=== PATIENT | male | born 1980 | race Caucasian/White ===

== ENCOUNTER 2016-07-11 09:49 | Outpatient (CLI) | payer OTHER | END 2016-07-11 09:50 | disposition home or self-care (01) | LOC: SC 09:49 | PROVIDERS: ATTEND Nurse Practitioner Family | DX: G47.33 Obstructive sleep apnea (adult) (pediatric) (principal) | CPT/HCPCS: 99212; 99214 ==

== ENCOUNTER 2016-11-07 09:52 | Outpatient (CLI) | payer OTHER | END 2016-11-07 09:53 | disposition home or self-care (01) | LOC: SC 09:52 | PROVIDERS: ATTEND Nurse Practitioner Family | DX: G47.33 Obstructive sleep apnea (adult) (pediatric) (principal) | CPT/HCPCS: 99212; 99214 ==

== ENCOUNTER 2016-12-04 09:51 | Outpatient (CLI) | payer OTHER | END 2016-12-04 09:52 | disposition home or self-care (01) | LOC: SC 09:51 | PROVIDERS: ATTEND Nurse Practitioner Family | DX: G47.33 Obstructive sleep apnea (adult) (pediatric) (principal) | CPT/HCPCS: 99212; 99214 ==

== ENCOUNTER 2021-05-26 13:59 | Outpatient (CLI) | payer OTHER ==
[2021-05-26 15:00] VITALS: BP 90/71
--- NOTE | 2021-05-26 15:00 | SLEEP CARE CONSULTATION ---
Information from patient questionnaire entered by Myrtle Ruiz MA. I have reviewed and concur with the information entered by Myrtle Ruiz MA. This document represents the service I personally performed and the decisions made by , Shira Stephens ARNP. History of Present Illness Service Date and Time: 05/26/2021 1359 Reason for Visit: New patient (ON CPAP, LAST SEEN 2016, ), Previously diagnosed sleep apnea, sleep apnea on CPAP therapy Chief Complaint: reports: Unrefreshed sleep, Snoring, Excessive daytime sleepiness, Observed pauses in breathing, Fatigue, Frequent awakenings at night Date of Onset: 10 YEARS Usual bedtime: 10:30 PM Time it takes to fall asleep: 5 TO 10 MINUTES Snores at night: Yes Observed to quit breathing while asleep: Yes Sleeps alone due to snoring: No Number of times waking at night: 3 -4 TIMES Reasons for waking at night: reports: Snoring, Gasping for air, Pain, Bathroom, Other (HANDS FALL ASLEEP) Toss, Turn, or Twitch while sleeping: Yes Recalls having dreams: No Usually gets out of bed at: 0530 Feels refreshed in the morning: No Sleepy or fatigued during the day: Yes Ever fallen asleep while driving: No Takes day naps: Yes Dreams during day naps: No Prior sleep studies: Yes Year and Where: FEBRUARY 26, 2015, [facility] Additional HPI information: BRITT KEYS was previously diagnosed to have mild, AHI 7.5, obstructive sleep apnea-hypopnea syndrome and returns today to re-establish care for CPAP therapy. - Parasomnia Symptoms Ever been unable to move upon waking from sleep: No Walks in sleep: No Talks in sleep: Yes Ever acted out dreams in sleep: Yes Ever felt weak in the knees when startled or emotional: No Bothered by creepy, crawly, restless sensations in legs: No Problems with memory or concentration: No CPAP Compliance Data Compliance data discussion: He used to use [facility] for supplies but he has not been dealing with anyone to get supplies. He has a [employer]star that is on the recall. He stopped using his device in January due to the recall. He is now having more fatigue and is sleeping worse. He uses a nasal cushion by [employer]. We were unable to get any therapy download from his machine. He has not been able to see updated information on his phone application that goes with his machine for a long time. Subjective Missed days of use due to: reports: other (stopped since Jan due to recall) Patient concerns: denies: aerophagia, mask discomfort, air blowing in eyes, mask leak noise, condensation in mask/hose, nasal congestion, dry mouth, nose, throat, epistaxis, other Current pressure setting perceived as: comfortable On therapy, patient: reports: sleeping better, awakening more refreshed, being more awake and alert during the day, more rested overall. 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 Patient is and lives in [place]. Have you smoked in the past 12 months: No Alcohol use: Yes Alcohol amount and frequency: 1 X YEARLY Caffeine use: Yes Caffeine amount and frequency: 1 X DAILY Family History Family history of sleep disordered breathing: Yes Family Hx Sleep Apnea: Mother: Snoring, Father: Snoring, Sleep apnea - Untreated Allergies and Home Medications Drug allergies reviewed: Yes (NKDA) Home medication list reviewed: Yes Allergy and home medication list: Ibuprofen as needed Review of Systems Cardiovascular: denies: high blood pressure Gastrointestinal: reports: heartburn Neurological: denies: headaches Psychiatric: denies: anxiety, depression Ear/Nose/Throat: reports: nasal congestion, wisdom teeth removed. denies: tonsillectomy Endocrine: reports: sluggishness. denies: thyroid disease Musculoskeletal: reports: joint pain, neck pain, back pain Immunologic: reports: sneezing, rash, itching, allergies to food or environment, other (SCZEMA) Physical Exam Vital signs obtained and entered by: Ky RUIZ CMA AAMO Blood Pressure: 90/71 (RIGHT, PULSE 89) Cuff size: wrist Heart Rate: 59 O2 Saturation: 96 Height: 6 ft Weight: 234 lb (WITH CLOTHES) Body Mass Index: 31.7 BMI Classification: Obese Heart: regular rate and rhythm Lungs: clear bilaterally Impression and Plan 1. Obstructive Sleep Apnea-Hypopnea Syndrome, mild, with unknown treatment compliance and unknown apnea control. On CPAP therapy, the patient has better sleep quality and is more rested overall. We tried to obtain his therapy report but their was no information on the machine or memory chip. He has not been using it due to the recall since January but he would like to continue his CPAP therapy. Patient has already registered their device for the recall. Patient denies any black particles seen in machine or hoses, any unusual odors coming from device. Patient has not experienced any physical symptoms such as upper airway irritation, headache, skin or eye irritation, asthma, nausea/vomiting, difficulty breathing or chest pain. If patient is not able to sleep due to waking up choking, gasping for air or other respiratory distress that they may decide to continue using it until it is either replaced or repaired. Since the patients current machine is at least 5 years old and the patient is opting to update their device with a device that is not on the recall. Patient voiced understanding and agreement with plan. Patient's apnea severity and rationale for treatment to reduce apnea, improve sleep quality and reduce cardiovascular and cerebrovascular events was reviewed. Currently patients BMI is 31.7. Patient was encouraged to lose weight for their overall health and to reduce apneas. * Continue auto CPAP pressure at 10 cmH2O * Update machine * Update supplies * Notify me if snoring with mask or feeling that the pressure is too much or too little * Attempt to lose weight * Call this office if any problems using CPAP * Return for follow up one month after obtaining new machine, or sooner if concerns arise Counseling Topics: Weight loss health impact Visit Type: In Office Time Spent with Patient (minutes): 30 Provider Statement: I spent 100% of the Face to Face Visit with the patient with greater than 50% spent counseling the patient and coordination of care.
== END 2021-05-26 14:00 | disposition home or self-care (01) ==
LOC: SC 13:59
PROVIDERS: ATTEND Nurse Practitioner Family
DX: G47.33 Obstructive sleep apnea (adult) (pediatric) (principal); E66.9 Obesity, unspecified; Z68.31 Body mass index [BMI] 31.0-31.9, adult
CPT/HCPCS: 99203; 99212

== ENCOUNTER 2021-08-11 13:40 | Emergency (ER) | payer OTHER ==
[2021-08-11 13:47] VITALS: BP 164/81
--- NOTE | 2021-08-11 14:12 | ED Physician Documentation ---
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 Patient states that he is left-hand dominant. He denies any bony exposure that he Could see or any nailbed involvement. No other complaints at this time. His last tetanus shot was less than 5 years ago. Review of Systems Ten Systems: 10 systems reviewed and negative Constitutional: reports: Reviewed and negative Eyes: reports: Reviewed and negative Ears: reports: Reviewed and negative Nose: reports: Reviewed and negative Throat: reports: Reviewed and negative Cardiac: reports: Reviewed and negative Respiratory: reports: Reviewed and negative GI: reports: Reviewed and negative : reports: Reviewed and negative Skin: reports: Laceration (s) Musculoskeletal: reports: Reviewed and negative Neurologic: reports: Reviewed and negative Psychiatric: reports: Reviewed and negative Endocrine: reports: Reviewed and negative Immunocompromised: reports: Reviewed and negative PD PAST MEDICAL HISTORY - Past Medical History Past Medical History: Yes Cardiovascular: None Respiratory: Sleep apnea, CPAP use Neuro: None Endocrine/Autoimmune: None GI: None : None HEENT: None Psych: None Musculoskeletal: None Derm: None - Past Surgical History Past Surgical History: Yes - Present Medications Home Medications: Ambulatory Orders Medication Instructions Recorded Confirmed No Known Home Medications 08/11/21 08/11/21 - Allergies Allergies/Adverse Reactions: Allergies Allergy/AdvReac Type Severity Reaction Status Date / Time No Known Drug Allergies Allergy Verified 08/11/21 13:44 - Social History Does the pt smoke?: No Smoking Status: Never smoker Does the pt drink ETOH?: No Does the pt have substance abuse?: No - Immunizations Immunizations are current?: No Immunizations: TDAP >10years/unknown PD ED PE NORMAL - Vitals Vital signs reviewed: Yes - General General: Alert and oriented X 3, No acute distress, Well developed/nourished - HEENT HEENT: Atraumatic, PERRL, EOMI, Moist mucous membranes - Neck Neck: Supple, no meningeal sign - Cardiac Cardiac: Strong equal pulses - Respiratory Respiratory: No respiratory distress - Derm Derm: Normal color, Warm and dry, No rash, Other (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 No involvement of the nail or nailbed. Tiny, brisk arteriolar bleeding noted in the midst of the wound.) - Extremities Extremities: No deformity, Other (No involvement of bones or joints.) - Neuro Neuro: Alert and oriented X 3 - Psych Psych: Normal mood, Normal affect Results - Vitals Vitals: Vital Signs - 24 hr 08/11/21 13:44 Temperature 36.4 C L Heart Rate 103 H Respiratory 18 Rate Blood Pressure 164/81 H O2 Saturation 96 Oxygen O2 Source Room air PD MEDICAL DECISION MAKING - ED course Complexity details: considered differential, d/w patient, d/w family ED course: I discussed with the patient that his wound is not suturable. A Surgicel foam piece was placed on the wound and then wound was dressed and pressure held. Patient was not found to have any further bleeding or leakage through the dressing. We have discussed wound care management at home. The patient is up-to-date on tetanus. We discussed follow-up and the usual indications for return. Departure - Departure Disposition: 01 Home, Self Care Clinical Impression: Avulsion of soft tissue Condition: Stable Instructions: ED Avulsion Dermal Comments: Please keep the dressing on the end of your finger for at least the next several days. Avoid any strenuous or high friction activities that involve that finger. You should also for the next 24 hours try to avoid having it hanging down. Once the wound forms a scab or is at least dry, you may remove the dressing. It will take some weeks for this to heal fully, but it will eventually grow skin over the wound. If you begin to notice redness and swelling spreading progressively away from the wound, or if it begins to drain pus, you should return to the emergency department or have it rechecked in clinic.
== END 2021-08-11 14:29 | disposition home or self-care (01) ==
LOC: ED 13:40
DX: S61.211A Laceration without foreign body of left index finger without damage to nail, initial encounter (principal); W26.0XXA Contact with knife, initial encounter
CPT/HCPCS: 99281; 99282

== ENCOUNTER 2022-04-04 14:57 | Outpatient (CLI) | payer OTHER ==
[2022-04-04 15:34] VITALS: BP 134/82
--- NOTE | 2022-04-04 15:34 | SLEEP CARE CONSULTATION ---
Information from patient questionnaire entered by Dean Walsh. I have reviewed and concur with the information entered by Dean Walsh. This document represents the service I personally performed and the decisions made by me, Shira Stephens ARNP. History of Present Illness Service Date and Time: 04/04/2022 1457 Previous diagnosis: Mild, Obstructive Sleep Apnea-Hypopnea Syndrome AHI: 7.5 Reason for follow up: first compliance after device update Equipment type: CPAP (RESMED) Equipment obtained from: Other ([facility]; getting suplies) Mask style: Nasal Mask brand: Respironics (Dreamwear) Backup mask available: Yes (other mask) Last cushion change: 2 months Prior sleep studies: Yes Year and Where: FEBRUARY 26, 2015, [facility] HPI additional information: BRITT KEYS was diagnosed to have mild, AHI 7.5, obstructive sleep apnea- hypopnea syndrome and returned today for CPAP therapy first compliance after updating device follow-up. Sleep Study - Results Prior sleep studies: Yes Year and Where: FEBRUARY 26, 2015, [facility] CPAP Compliance Data - Data Reviewed with Patient Average duration of nightly device use: 4 hours 24 minutes Compliance rate %: 51 (62/90 days used) Current pressure setting (cmH2O): 10 Average residual AHI: 3.3 Central apnea: 1.4 Obstructive apnea: 1.7 Subjective Missed days of use due to: reports: illness (had a cold, couldn't breathe through nose), other (fall asleep without mask on or CPAP off) Patient concerns: reports: dry mouth, nose, throat (occasional ). denies: aerophagia, mask discomfort, air blowing in eyes, mask leak noise, condensation in mask/hose, nasal congestion, epistaxis Observed to snore while using device: No Current pressure setting perceived as: comfortable On therapy, patient: reports: sleeping better, awakening more refreshed, being more awake and alert during the day, more rested overall. denies: drowsiness while driving Initial [place] Sleepiness Scale score: 14 (2021) Current [place] Sleepiness Scale score: 13 (04/04/2022) Allergies and Home Medications Drug allergies reviewed: Yes (NKDA) Home medication list reviewed: Yes (no changes) Review of Systems Review of systems same as previous: No (Hernia surgery) Physical Exam Vital signs obtained and entered by: DEAN Clark MA Blood Pressure: 134/82 (LEFT ARM) Cuff size: regular Heart Rate: 95 O2 Saturation: 98 Height: 6 ft Weight: 250 lb 3.2 oz Body Mass Index: 33.9 BMI Classification: Obese Impression and Plan 1. Obstructive Sleep Apnea-Hypopnea Syndrome, mild, with fair treatment compliance and good apnea control. On CPAP therapy, the patient has better sleep quality and is more rested overall. Patient is getting re-used to using his CPAP and is seeing the improvement of his symptoms. He states he will continue to try to improve his compliance. I will have him follow upin 1-2 months to recheck his compliance. He voiced understanding and agreement. Patient's apnea severity and rationale for treatment to reduce apnea, improve sleep quality and reduce cardiovascular and cerebrovascular events was reviewed. I also reviewed the benefit of consistent device use of CPAP for gastric reflux. 2. Obesity, unspecified. Currently patients BMI is 33.9. Obesity increases the risk of apnea, CPAP pressure requirements and overall health risks especially cardiovascular and diabetes. Thus patient is advised to lose weight. * Continue CPAP pressure at 10 cmH2O * Notify me if snoring with mask or feeling that the pressure is too much or too little * Attempt to lose weight * Call this office if any problems using CPAP * Return for follow up in 1-2 months, or sooner if concerns arise Counseling Topics: Spare mask, Weight loss health impact Visit Type: In Office Time Spent with Patient (minutes): 20 Provider Statement: I spent 100% of the Face to Face Visit with the patient with greater than 50% spent counseling the patient and coordination of care.
== END 2022-04-04 14:58 | disposition home or self-care (01) ==
LOC: SC 14:57
PROVIDERS: ATTEND Nurse Practitioner Family
DX: G47.33 Obstructive sleep apnea (adult) (pediatric) (principal); E66.9 Obesity, unspecified; Z68.33 Body mass index [BMI] 33.0-33.9, adult
CPT/HCPCS: 99212; 99213

== ENCOUNTER 2022-05-02 15:21 | Outpatient (CLI) | payer OTHER ==
[2022-05-02 15:54] VITALS: BP 140/80
--- NOTE | 2022-05-02 15:54 | SLEEP CARE CONSULTATION ---
Information from patient questionnaire entered by Dean Walsh. I have reviewed and concur with the information entered by Dean Walsh. This document represents the service I personally performed and the decisions made by me, Shira Stephens ARNP. History of Present Illness Service Date and Time: 05/02/2022 1521 Previous diagnosis: Mild, Obstructive Sleep Apnea-Hypopnea Syndrome AHI: 7.5 Reason for follow up: one month (F/U) Equipment type: CPAP (RESMED Airsense 11) Equipment obtained from: Other ([facility]; getting supplies) Mask style: Nasal Mask brand: Respironics (Dreamwear) Backup mask available: No (will keep old mask when replaced) Last cushion change: last week Prior sleep studies: Yes Year and Where: FEBRUARY 26, 2015, [facility] HPI additional information: BRITT KEYS was diagnosed to have mild, AHI 7.5, obstructive sleep apnea- hypopnea syndrome and returned today for CPAP therapy one month follow-up. Sleep Study - Results Prior sleep studies: Yes Year and Where: FEBRUARY 26, 2015, [facility] CPAP Compliance Data - Data Reviewed with Patient Average duration of nightly device use: 4 hours 31 minutes Compliance rate %: 67 ( days used) Current pressure setting (cmH2O): 10 Average residual AHI: 5.5 Central apnea: 1.4 Obstructive apnea: 3.9 Hypopnea: 0.1 Subjective Missed days of use due to: reports: illness (nose stuffy, could not use mask) Patient concerns: reports: dry mouth, nose, throat (dry mouth ). denies: aerophagia, mask discomfort, air blowing in eyes, mask leak noise, condensation in mask/hose, nasal congestion, epistaxis Observed to snore while using device: No Current pressure setting perceived as: comfortable On therapy, patient: reports: sleeping better, awakening more refreshed, being more awake and alert during the day, more rested overall. denies: drowsiness while driving Initial [place] Sleepiness Scale score: 14 (2021) Current [place] Sleepiness Scale score: 11 (05/02/22) Allergies and Home Medications Drug allergies reviewed: Yes (NKDA) Home medication list reviewed: Yes (no changes) Review of Systems Review of systems same as previous: Yes (no changes) Physical Exam Vital signs obtained and entered by: DEAN C, MA Blood Pressure: 140/80 (LEFT ARM) Cuff size: regular Heart Rate: 101 O2 Saturation: 94 Height: 6 ft Weight: 246 lb 9.6 oz Body Mass Index: 33.4 BMI Classification: Obese Impression and Plan 1. Obstructive Sleep Apnea-Hypopnea Syndrome, mild, with fair treatment compliance and good apnea control. On CPAP therapy, the patient has better sleep quality and is more rested overall. Patient has increased his compliance to 67%. He is trying to wear it every night for at least 4 hours but has missed a few nights due to nasal congestion when he was sick. Patient also complaining of some oral dryness in the mornings. I advised him to either try a chinstrap or mouth strips to keep his mouth closed to reduce oral dryness. He voiced understanding. Patient's apnea severity and rationale for treatment to reduce apnea, improve sleep quality and reduce cardiovascular and cerebrovascular events was reviewed. I also reviewed the benefit of consistent device use of CPAP for gastric reflux. I will have patient follow-up in 1 to 2 months to recheck compliance. I feel he will not have a problem improving his compliance over the next month. 2. Obesity, unspecified. Currently patients BMI is 33.4. Obesity increases the risk of apnea, CPAP pressure requirements and overall health risks especially cardiovascular and diabetes. Thus patient is advised to lose weight. * Continue CPAP pressure at 10 cmH2O * Notify me if snoring with mask or feeling that the pressure is too much or too little * Attempt to lose weight * Call this office if any problems using CPAP * Return for follow up in 1-2 months, or sooner if concerns arise Counseling Topics: Spare mask, Weight loss health impact Visit Type: In Office Time Spent with Patient (minutes): 20 Provider Statement: I spent 100% of the Face to Face Visit with the patient with greater than 50% spent counseling the patient and coordination of care.
== END 2022-05-02 15:22 | disposition home or self-care (01) ==
LOC: SC 15:21
PROVIDERS: ATTEND Nurse Practitioner Family
DX: G47.33 Obstructive sleep apnea (adult) (pediatric) (principal); E66.9 Obesity, unspecified; Z68.33 Body mass index [BMI] 33.0-33.9, adult
CPT/HCPCS: 99212; 99213

== ENCOUNTER 2022-06-06 15:24 | Outpatient (CLI) | payer OTHER ==
[2022-06-06 16:04] VITALS: BP 118/80
--- NOTE | 2022-06-06 16:04 | SLEEP CARE CONSULTATION ---
Information from patient questionnaire entered by Dean Walsh. I have reviewed and concur with the information entered by Dean Walsh. This document represents the service I personally performed and the decisions made by me, Shira Stephens ARNP. History of Present Illness Service Date and Time: 06/06/2022 1524 Previous diagnosis: Mild, Obstructive Sleep Apnea-Hypopnea Syndrome AHI: 7.5 Reason for follow up: one month (F/U) Equipment type: CPAP (RESMED) Equipment obtained from: Other ([facility]; getting supplies) Mask style: Nasal Mask brand: Respironics (Dreamwear) Backup mask available: Yes (other mask) Prior sleep studies: Yes Year and Where: FEBRUARY 26, 2015, [facility] HPI additional information: BRITT KEYS was diagnosed to have mild, AHI 7.5, obstructive sleep apnea- hypopnea syndrome and returned today for CPAP therapy one month follow-up. Sleep Study - Results Prior sleep studies: Yes Year and Where: FEBRUARY 26, 2015, [facility] CPAP Compliance Data - Data Reviewed with Patient Average duration of nightly device use: 4 hours 13 minutes Compliance rate %: 60 (25/30 days used) Current pressure setting (cmH2O): 10 Average residual AHI: 10 Central apnea: 1.3 Obstructive apnea: 3.0 Subjective Missed days of use due to: reports: illness (nasal congestion from cold), other (falls asleep without it) Patient concerns: denies: aerophagia, mask discomfort, air blowing in eyes, mask leak noise, condensation in mask/hose, nasal congestion, dry mouth, nose, throat, epistaxis Observed to snore while using device: No Current pressure setting perceived as: comfortable On therapy, patient: reports: sleeping better, awakening more refreshed, being more awake and alert during the day, more rested overall. denies: drowsiness while driving Initial [place] Sleepiness Scale score: 14 (2021) Current [place] Sleepiness Scale score: 9 (06/06/22) Allergies and Home Medications Drug allergies reviewed: Yes (NKDA) Home medication list reviewed: Yes (no changes) Review of Systems Review of systems same as previous: Yes (no changes) Physical Exam Vital signs obtained and entered by: DEAN Clark MA Blood Pressure: 118/80 (LEFT ARM) Cuff size: regular Heart Rate: 86 O2 Saturation: 98 Height: 6 ft Weight: 242 lb Body Mass Index: 32.8 BMI Classification: Obese Impression and Plan 1. Obstructive Sleep Apnea-Hypopnea Syndrome, mild, with fair treatment compliance and good apnea control. On CPAP therapy, the patient has better sleep quality and is more rested overall. Patient did try to keep his compliance up but he will fall asleep without putting the mask on. He lays down and will fall asleep while talking with his . He also had a cold which made it difficult to wear the nasal mask. He tried a full face mask that he found in his supplies but it leaked and would not seal well on his face. He has since switched back to he nasal cushion mask. He is committed to getting his compliance up and we will follow up again in 1-2 months to recheck compliance. Patient's apnea severity and rationale for treatment to reduce apnea, improve sleep quality and reduce cardiovascular and cerebrovascular events was reviewed. I also reviewed the benefit of consistent device use of CPAP for gastric reflux. 2. Obesity, unspecified. Currently patients BMI is 32.8. Obesity increases the risk of apnea, CPAP pressure requirements and overall health risks especially cardiovascular and diabetes. Thus patient is advised to lose weight. * Continue auto CPAP pressure at 10 cmH2O * Notify me if snoring with mask or feeling that the pressure is too much or too little * Attempt to lose weight * Call this office if any problems using CPAP * Return for follow up in 1-2 months, or sooner if concerns arise Counseling Topics: Spare mask, Weight loss health impact Visit Type: In Office Time Spent with Patient (minutes): 14 Provider Statement: I spent 100% of the Face to Face Visit with the patient with greater than 50% spent counseling the patient and coordination of care.
== END 2022-06-06 15:25 | disposition home or self-care (01) ==
LOC: SC 15:24
PROVIDERS: ATTEND Nurse Practitioner Family
DX: G47.33 Obstructive sleep apnea (adult) (pediatric) (principal); E66.9 Obesity, unspecified; Z68.32 Body mass index [BMI] 32.0-32.9, adult
CPT/HCPCS: 99212

== ENCOUNTER 2022-07-12 15:23 | Outpatient (CLI) | payer OTHER ==
--- NOTE | 2022-07-12 15:56 | SLEEP CARE CONSULTATION ---
Information from patient questionnaire entered by Dean Walsh. I have reviewed and concur with the information entered by Dean Walsh. This document represents the service I personally performed and the decisions made by me, Shira Stephens ARNP. History of Present Illness Service Date and Time: 07/12/2022 1523 Previous diagnosis: Mild, Obstructive Sleep Apnea-Hypopnea Syndrome AHI: 7.5 Reason for follow up: one month (F/U) Equipment type: CPAP (RESMED Airsense 11 s/u 12/2021) Equipment obtained from: Other ([facility]; getting supplies) Mask style: Nasal Mask brand: Respironics (Dreamwear) Backup mask available: Yes (old mask) Last cushion change: last week Prior sleep studies: Yes Year and Where: FEBRUARY 26, 2015, [facility] HPI additional information: BRITT KEYS was diagnosed to have mild, AHI 7.5, obstructive sleep apnea- hypopnea syndrome and returned today for CPAP therapy one month follow-up. Sleep Study - Results Prior sleep studies: Yes Year and Where: FEBRUARY 26, 2015, [facility] CPAP Compliance Data - Data Reviewed with Patient Average duration of nightly device use: 4 HRS 48 MIN Compliance rate %: 77 (06/07/22-07/06/22; days used) Current pressure setting (cmH2O): 10 Average residual AHI: 3.2 Central apnea: 0.8 Obstructive apnea: 2.1 Subjective Patient concerns: denies: aerophagia, mask discomfort, air blowing in eyes, mask leak noise, condensation in mask/hose, nasal congestion, dry mouth, nose, throat, epistaxis Observed to snore while using device: No Current pressure setting perceived as: comfortable On therapy, patient: reports: sleeping better, awakening more refreshed, being more awake and alert during the day, more rested overall. denies: drowsiness while driving Initial [place] Sleepiness Scale score: 14 (2021) Current [place] Sleepiness Scale score: 10 (07/12/22) Allergies and Home Medications Known drug allergies: No Drug allergies reviewed: Yes Home medication list reviewed: Yes (no changes) Review of Systems Review of systems same as previous: Yes (no changes) Physical Exam Vital signs obtained and entered by: DEAN Clark MA Blood Pressure: 126/74 (LEFT ARM) Cuff size: regular Heart Rate: 91 O2 Saturation: 96 Height: 6 ft Weight: 242 lb 12.8 oz Body Mass Index: 32.9 BMI Classification: Obese Impression and Plan 1. Obstructive Sleep Apnea-Hypopnea Syndrome, mild, with good treatment compliance and good apnea control. On CPAP therapy, the patient has better sleep quality and is more rested overall. Patient has been able to increase his compliance is 77%. He states he is definitely feeling a difference in his sleep and restfulness in the mornings. Patient has significant improvement of their sleep apnea and is satisfied with current CPAP therapy. Patient denies problems with oral dryness, nasal congestion, epistaxis, skin irritation or aerophagia. Patient's apnea severity and rationale for treatment to reduce apnea, improve sleep quality and reduce cardiovascular and cerebrovascular events was reviewed. I also reviewed the benefit of consistent device use of CPAP for gastric reflux. 2. Obesity, unspecified. Currently patients BMI is 32.9. Obesity increases the risk of apnea, CPAP pressure requirements and overall health risks especially cardiovascular and diabetes. Thus patient is advised to lose weight. * Continue CPAP pressure at 10 cmH2O * Notify me if snoring with mask or feeling that the pressure is too much or too little * Attempt to lose weight * Call this office if any problems using CPAP * Return for follow up in 1 year, or sooner if concerns arise Counseling Topics: Spare mask, Weight loss health impact Visit Type: In Office Time Spent with Patient (minutes): 11 Provider Statement: I spent 100% of the Face to Face Visit with the patient with greater than 50% spent counseling the patient and coordination of care.
[2022-07-12 15:57] VITALS: BP 126/74
== END 2022-07-12 15:24 | disposition home or self-care (01) ==
LOC: SC 15:23
PROVIDERS: ATTEND Nurse Practitioner Family
DX: G47.33 Obstructive sleep apnea (adult) (pediatric) (principal); E66.9 Obesity, unspecified; Z68.32 Body mass index [BMI] 32.0-32.9, adult
CPT/HCPCS: 99212